=== PATIENT | male | born 2005 | race Caucasian/White ===

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

== ENCOUNTER 2024-07-08 15:14 | Emergency (ER) | payer OTHER ==
[~2024-07-08] VITALS: Ht 170.2 cm; Wt 108.9 kg
[2024-07-08] MEDS ORDERED: PredniSONE 20 MG Tab PO ONE (15:50)
[2024-07-08 19:25] VITALS: BP 137/74
== END 2024-07-08 19:29 | disposition other institution (70) ==
LOC: ER 15:14
DX: M25.512 Pain in left shoulder (principal); Z91.030 Bee allergy status; Z88.0 Allergy status to penicillin; Z91.048 Other nonmedicinal substance allergy status; V64.6XXA Passenger in heavy transport vehicle injured in collision with heavy transport vehicle or bus in traffic accident, initial encounter
CPT/HCPCS: 70450; 71260; 72125; 73030; 74177; 99284-25; Q9967